=== PATIENT | male | born 1955 | race Caucasian/White ===

== ENCOUNTER 2022-02-05 14:54 | Outpatient (CLI) | payer BC, SELFPAY | END 2022-02-05 14:55 | disposition home or self-care (01) | LOC: RAD 14:55 | PROVIDERS: PCP Family Medicine; Visit Provider Family Medicine | DX: I51.7 Cardiomegaly (principal); I10 Essential (primary) hypertension; I35.1 Nonrheumatic aortic (valve) insufficiency; I34.0 Nonrheumatic mitral (valve) insufficiency | CPT/HCPCS: 93306 ==

== ENCOUNTER 2022-10-02 14:28 | Emergency (ER) | payer BC, SELFPAY ==
[2022-10-02 14:36] VITALS: BP 177/105; PULSE 83; RESP 18; TEMP 36.6; O2SAT 98; BMI 40.3
--- NOTE | 2022-10-02 15:15 | ED.NURSE ---
Right great toe dressed with gauze and wrapped with ELIZABETH wrap by at home. Toe undressed and cleansed with normal saline and sterile gauze. Laceration noted across bottom of entire big toe nail. Small amount of bleeding from wound. Dr. Haji present after toe was undressed and cleansed the wound herself.
--- NOTE | 2022-10-02 15:16 | ED_ITS ---
HPI - Extremity Injury (Lower) General Time Seen by Provider: 15:16 Date Seen: 10/02/22 Chief Complaint: Extremity Pain/Injury, Lower Stated Complaint: Right big toe injury Time Seen by Provider: 10/02/22 15:06 Source: patient and RN notes reviewed Mode of arrival: ambulatory Limitations: no limitations History of Present Illness HPI Narrative: Patient is a 67-year-old male coming in with an injury to his right toe. He tripped on a rug and on states he heard a snap. His toe was bleeding afterwards. He is not on any blood thinners. We will check to see what his last tetanus was, he is not sure. This rug was in the house. There is no other injury. Happened just prior to arrival. Related Data Previous Rx's Medication Instructions Recorded glipizide 10 mg tablet, extended 10 mg PO QDAY #90 tabs 10/16/21 release 24 hr metformin 750 mg tablet,extended 1,500 mg (2 x 750 mg) PO QDAY #180 10/16/21 release 24 hr tabs lisinopril 20 mg tablet 20 mg PO QDAY #90 tabs 09/25/22 cephalexin 500 mg tablet 500 mg PO TID #21 tabs 10/02/22 Allergies Allergy/AdvReac Type Severity Reaction Status Date / Time No Known Drug Allergies Allergy Verified 10/02/22 14:39 Review of Systems Narrative: As per HPI. PFSH PFSH Social History Smoking Status: Never smoker Do you use any of these nicotine containing products: None Second hand tobacco smoke exposure: No How often do you have a drink containing alcohol: never AUDIT-C Alcohol total score: 0 Non-prescribed substance use: denies use service: No Exam Const: Vital Signs, click to edit/add: Vital Signs - 24 hr 10/02/22 14:36 Temperature 98 F Pulse Rate [Right Pulse Oximeter] 83 Respiratory Rate 18 Blood Pressure [Ri ght Upper Arm] 177/105 H Pulse Oximetry 98 Oxygen Delivery Me thod Room Air 67-year-old male is alert interactive no apparent distress. Bandages were removed from his right foot. He has obvious bleeding along the base of his toenail in the right 1st toe. You can see when you move the toe down that the whole nail is intact but that there is a ripped along the base of the nail both medial and laterally and extends into the soft tissues. The tissue beneath the nail is completely intact but there seems to be a laceration that extends deep. There is active bleeding when I do this. It is more venous oozing type bleeding, nothing spurting. The nail itself is entirely intact but did talk to both patient and his that the nail plate below the nail could certainly be damaged. He needs repair of the soft tissues certainly with stitching. Did review with them that if the nail plate is traumatized, Course Consultations Consultation #1: Reviewed with Elsie MAURER from Orthopedics. Reviewed that this is open wound where he affectively fractured but also opened the tissue by the nail bed. She agrees with the suturing, agrees with the fact that he may have toenail injury and may lose the nail. They will get him in to clinic next week to recheck. Time: 16:40 Vital Signs Vital signs: Initial Vital Signs Temperature 98 F 10/02/22 14:36 Temperature Source Temporal Artery Scan 10/02/22 14:36 Pulse Rate 83 10/02/22 14:36 Respiratory Rate 18 10/02/22 14:36 Blood Pressure 177/105 H 10/02/22 14:36 Blood Pressure Mean 129 H 10/02/22 14:36 Blood Pressure Position Sitting 10/02/22 14:36 Pulse Oximetry 98 10/02/22 14:36 Oxygen Delivery Method Room Air 10/02/22 14:36 Vital Signs Temperature 98 F 10/02/22 14:36 Pulse Rate 83 10/02/22 14:36 Respiratory Rate 18 10/02/22 14:36 Blood Pressure 177/105 H 10/02/22 14:36 Pulse Oximetry 98 10/02/22 14:36 Oxygen Delivery Method Room Air 10/02/22 14:36 Temperature 98 F 10/02/22 14:36 Pulse Rate 83 10/02/22 14:36 Respiratory Rate 18 10/02/22 14:36 Blood Pressure 177/105 H 10/02/22 14:36 Pulse Oximetry 98 10/02/22 14:36 Oxygen Delivery Method Room Air 10/02/22 14:36 MDM - Extremity Injury (Lower) Imaging Data XR toe: Attestation: I have reviewed the pertinent imaging results. Radiologist's impression: Patient: ALFREDO ORTIZ Facility:?[facility] Patient ID:?[id number] Site Patient ID:?[id number]. Site :?[id number] Study:?XRay Extremity Right 1ST TOE 3V-10/02/2022 3:44:28 PM Ordering Physician:Genet Chao Final Report: INDICATION: Injury. COMPARISON: None. TECHNIQUE: Three views of the great toe. FINDINGS: Fracture base of 1st distal phalanx, mild angulation and displacement. No additional fractures. Dictated by Lewis Garcia MD @ 10/02/2022 4:20:36 PM (Electronic Signature) Critical Care Time Critical Care Time Critical Care Time: No Discharge Plan Discharge Clinical Impression: Fracture of toe, open Patient Disposition: Home, Self-Care Condition: Stable Instructions: Toe Fracture (ED) Additional Instructions: Need to use postop shoe for ambulation. Do not walk barefoot on this toe right now. Need to keep the laceration clean, use bandages with bacitracin. We will put you on an antibiotic as this was an open fracture, please start today and take as prescribed. Can use Tylenol and ibuprofen if needed for pain control, follow bottle directions for dosing. Recommend ice and elevation as much as able to these 1st couple of days to help decrease pain and swelling. The orthopedic office will be contacting you on Tuesday to get you scheduled for follow-up. A work note to be out of work this next week has been provided. If there is any evidence of infection, please seek re-evaluation. Prescriptions: New cephalexin 500 mg tablet 500 mg PO TID Qty: 21 0RF No Action metformin 750 mg tablet extended release 24 hr 1,500 mg PO QDAY Qty: 180 3RF glipizide 10 mg tablet extended release 24hr 10 mg PO QDAY Qty: 90 3RF lisinopril 20 mg tablet 20 mg PO QDAY Qty: 90 0RF Follow Up/Referrals: Davin Hannah MD [Primary Care Provider] - Stand Alone Forms: [facility] [place] Info Instructions Procedures Laceration Laceration 1: Pre procedure diagnosis: Toe laceration Post procedure diagnosis: Same Site marking: not applicable Name of person performing procedure: Zhanna Esteban Site: other (Right great toe) Side (If applicable): right Size (cm): 1.0 Description: linear Depth: simple, single layer Local Anesthetic: lidocaine 1% Amount of anesthesia used (mL): 5 (Digital block performed) Pre-repair: wound explored Skin layer closed with: other (Ethilon) Size (cm): 3-0 Number of sutures: 6 (3 sutures on each side of the base of the toe where the skin tore are placed) Technique: simple, interrupted
--- NOTE | 2022-10-02 15:24 | CRLHL7_ITS ---
For Patients: As a result of the Cures Act, medical imaging exams and procedure reports are released immediately into your electronic medical record. You may view this report before your referring provider. If you have questions, please contact your health care provider. INDICATION: Injury. COMPARISON: None. TECHNIQUE: Three views of the great toe. FINDINGS: Fracture base of 1st distal phalanx, mild angulation and displacement. No additional fractures. Dictated by Lewis Garcia MD @ 10/02/2022 4:20:36 PM (Electronically Signed)
--- NOTE | 2022-10-02 16:45 | ED.NURSE ---
Wound cleansed with normal saline and gauze. Dressed with bacitracin and telfa, then wrapped with gauze and ELIZABETH wrap. Post-op shoe applied. D/c instructions provided
== END 2022-10-02 16:54 | disposition home or self-care (01) ==
PROVIDERS: Emergency Provider Family Medicine; PCP Family Medicine
DX: S91.211A Laceration without foreign body of right great toe with damage to nail, initial encounter (principal); S92.404A Nondisplaced unspecified fracture of right great toe, initial encounter for closed fracture; W22.8XXA Striking against or struck by other objects, initial encounter
CPT/HCPCS: 12002; 73660; 99283

== ENCOUNTER 2022-12-29 10:20 | Outpatient (CLI) | payer BC, SELFPAY | END 2022-12-29 10:21 | disposition home or self-care (01) | PROVIDERS: PCP Family Medicine; Visit Provider Family Medicine | DX: Z01.818 Encounter for other preprocedural examination (principal); I10 Essential (primary) hypertension; E66.9 Obesity, unspecified; E13.9 Other specified diabetes mellitus without complications; Z12.5 Encounter for screening for malignant neoplasm of prostate; Z13.6 Encounter for screening for cardiovascular disorders | CPT/HCPCS: 80048; 80061; 84153 ==

== ENCOUNTER 2023-01-08 09:43 | Outpatient (CLI) | payer BC, SELFPAY | END 2023-01-08 09:44 | disposition home or self-care (01) | LOC: LAB 09:44 | PROVIDERS: PCP Family Medicine; Visit Provider Orthopaedic Surgery Sports Medicine | DX: Z01.818 Encounter for other preprocedural examination (principal) | CPT/HCPCS: 36415; 86850; 86900; 86901 ==

== ENCOUNTER 2023-01-10 06:57 | Day surgery (SDC) | payer BC, SELFPAY ==
[2023-01-10] VITALS (21 sets, daily range): BP systolic 100–166; BP diastolic 59–98; PULSE 60–826; RESP 14–161; TEMP 36.2–37.1; O2SAT 94–98; BMI 39.9
--- NOTE | 2023-01-10 07:38 | CRLHL7_ITS ---
For Patients: As a result of the Cures Act, medical imaging exams and procedure reports are released immediately into your electronic medical record. You may view this report before your referring provider. If you have questions, please contact your health care provider. HISTORY: Total hip arthroplasty. TECHNIQUE: Two views of the left hip. COMPARISON: 01/10/2023. FINDINGS: Intact left total hip arthroplasty. No periprosthetic fracture or hardware loosening. Soft tissue gas is present. IMPRESSION: Intact left total hip arthroplasty. Dictated by Levi Irizarry MD @ 01/11/2023 5:13:31 AM (Electronically Signed)
[2023-01-10] MEDS: ACETAMINOPHEN 500 MG TABLET 1000 MG PO ×3 (07:42→18:46)
[2023-01-10] MEDS: OXYCODONE (CR) 10 MG TAB.ER.12H PO (07:42)
[2023-01-10] MEDS: LACTATED RINGERS 1000 ML 1,000 ML 100 ML IV ×2 (08:00→08:59)
[2023-01-10] MEDS: SODIUM CHLORIDE 0.9 % (FLUSH) 10 ML SYRINGE IVF (08:00)
[2023-01-10] MEDS: fentaNYL 100 MCG/2 ML inj IVP (08:25)
[2023-01-10] MEDS: MIDAZOLAM HCL 1 MG/ML inj IVP (08:25)
--- NOTE | 2023-01-10 08:38 | SUR.PREOP ---
TIME?OUT:?0825 PT/RN/MDA?VERIFICATION?OF?SURGICAL?SITE,?PROCEDURE,?AND?CONSENT OBTAINED?PRIOR?TO?INVASIVE?PROCEDURE.
--- NOTE | 2023-01-10 08:45 | CRLHL7_ITS ---
For Patients: As a result of the Cures Act, medical imaging exams and procedure reports are released immediately into your electronic medical record. You may view this report before your referring provider. If you have questions, please contact your health care provider. INDICATION: Left total hip arthroplasty TECHNIQUE: 56 seconds of fluoroscopy was provided with no radiologist in attendance. 1 view left COMPARISON: None FINDINGS: Single fluoroscopic image demonstrates an intraoperative appearance of hip arthroplasty. Dictated by cOhoa Ray MD @ 01/10/2023 4:44:36 PM Dictated by: Ochoa Ray MD @ 01/10/2023 16:44:40 (Electronically Signed)
[2023-01-10] MEDS: CEFAZOLIN 2 GM in 0.9 % SODIUM CHLORIDE Mini-bag 100 ML IVPB ×3 (08:50→23:07)
[2023-01-10] MEDS: TRANEXAMIC ACID 100 MG/ML INJ 1000 MG IV (08:50)
--- NOTE | 2023-01-10 09:02 | SUR.OPER ---
PATIENT QUESTIONS ANSWERED SATISFACTORILY PREOPERATIVELY. PATIENT BROUGHT TO OR #3 PER CART AFTER ADMINISTRATION OF A BLOCK. Patient positioned supine on OR #3 bed. The perioperative team supported arms bilaterally on arm boards. Final approval of positioning by surgeon.
--- NOTE | 2023-01-10 09:24 | W.PM.NB ---
Nerve Block Nerve Block Time Seen by Provider: 08:29 Date Seen: 01/10/23 Type of block requested by surgeon for post-operative analgesia: ELYSSA/LFCN Side: left Time out performed: Yes Verification of patient name: Yes Verification of date of : Yes Site marking: site marked Name of person performing procedure: Juan Carlos Continuous monitoring Was continuous monitoring of O2 sat, B/P, inspector brake lining, recorded every 15 minutes?: Yes Procedure Checklist: sterile prep, needles and gloves Ultrasound guided. Images saved: Yes Medications given in 5ml increments after negative aspiration: Ropivicaine %: 0.5 mL: 30 Needle gauge: 20 Decadron (mg): 10 Precedex (mcg): 25 Patient tolerated procedure well: Yes Additional comments: Needle noted below psoas tendon needle noted adjacent to LFCN Block Charges Block Charge (with Pro Fee): Other Periph Nerve Block Use of Ultrasound Machine for Block: Yes- US Guidance/pain block
--- NOTE | 2023-01-10 09:24 | W.ANESCHARGE ---
Anesthesia Charges Start Date/Time Anesthesia Start Date: 01/10/23 Anesthesia Start Time: 08:34 Stop Date/Time Anesthesia Stop Date: 01/10/23 Anesthesia Stop Time: 11:33
--- NOTE | 2023-01-10 11:00 | W.PM.H&PU ---
History & Physical Update History & Physical Update H&P Reviewed and patient assessed: No changes noted
--- NOTE | 2023-01-10 11:01 | P.ORPRC_ITS ---
Procedure Note Date of procedure: 01/10/23 Procedure: PREOPERATIVE DIAGNOSIS: 1. Left hip osteoarthritis, severe, primary POSTOPERATIVE DIAGNOSIS: 1. Left hip osteoarthritis, severe, primary PROCEDURE: 1. Left total hip arthroplasty-anterior approach 2. 78355 - intraoperative fluoroscopy up to 1 hour. SURGEON: Adalberto Quintero MD. MORTGAGE LOAN PROCESSOR: KALPANA Rosenberg; Davion Zuniga Pac - Of note, a skilled specimen preparation assistant was critical for this case to aid in patient positioning, tissue retraction, limb manipulation/positioning, dislocation/relocation, patient safety, and closure. ANESTHESIA: General endotracheal anesthetic+ Gus block EBL: 700ml IMPLANTS: DePuy J&J uncemented total hip [place] cup size 52, hole eliminator, +4 neutral liner Actis stem, high offset, size 7 +1.5 mm ceramic 36 mm head. SPECIMENS: Soft tissue specimen was sent for permanent pathology. It was near the capsule/encompassed within the anterior and lateral capsule. It had a strange white color and soft consistency. It is not 1 specific spot, but seemed to ooze when pressure was applied to the more posterior lateral capsule. COMPLICATIONS: None evident INDICATIONS: The patient is a pleasant 67-year-old male who has experienced severe left hip pain and difficulty bearing weight. Workup included x-rays which revealed severe osteoarthrosis in the hip. Given the deformity, the dysfunction, and the pain, as well as the failure of nonoperative management, recommendation was made for surgery. FINDINGS: Diffuse full-thickness osteo arthritic changes within the left hip joint including loss of cartilage in the femoral head and acetabulum. Osteo phyte formation accompanying this. Atypical, white-colored, tapioca pudding- looking tissue was encountered when dissecting deeper towards the capsular depth. Some of this was captured and sent for permanent pathology. The superficial muscle tissue was very abnormal in appearance. In fact, it was not a typical beefy-red appearance. Instead, it was pale and had no real striations. It was difficult to find the proper muscle plane from the superficial layers. Once we got to the deeper layers, the muscle tissue appeared more normal and confirmed the proper plane for our dissection. Beyond that, very tight hip in general. Somewhat difficult to elevate the femur out of the wound, but tissue mobilization allowed procedure to be completed safely. DESCRIPTION OF PROCEDURE: Following a thorough discussion of risks, benefits, and alternatives consent was obtained and the left hip was marked. The patient was brought to the operating room and placed supine on the operating table. Induction of anesthesia was undertaken. 2 g IV Ancef and 1 g tranexamic acid was administered within 1 hr of incision preoperatively. Proper time-out was performed identifying proper patient, site, procedure. The operative extremity was prepped and draped in the appropriate sterile fashion using ChloraPrep after the patient was positioned on the [place] table with head in neutral alignment and all bony prominences well padded. C-arm fluoroscopic imaging was utilized to confirm proper pelvis rotation and position, and to get true AP films of both the contralateral left, and the affected left hip. This is for comparison. A longitudinal incision was made starting approximately 1 cm distal to the ASIS, and 3-4 cm lateral. The incision was extended distally aiming toward the lateral border the patella. Sharp incision through skin and bovie cautery through the subcutaneous tissue allowed identification of the TFL fascia. This was sharply divided, and the fascia bluntly released from the muscle fibers as we dissected medial. Upon coming to the medial border, we were able to retract the TFL laterally, and penetrated the deeper fascia and identify the crossing circumflex vessels. These were ligated/cauterized. The rectus was elevated from the capsule, and retractors placed laterally and medially along the femoral neck to help with visualization of the capsule. We then performed an inverted T capsulotomy. The capsule was tagged for later repair. (Of note, it was around this time that we encountered the atypical appearing white colored soft consistency tissue that was sent for pathology.) Retractors were placed inside the capsule. The femoral neck was visualized after releasing medially down to the lesser trochanter, along the saddle laterally, and up onto the acetabulum. The femoral neck cut was made in line with our preoperative templating. The head was removed in a single piece, and sized. We turned our attention to acetabular preparation. Initially, the labrum was resected from around the perimeter, the pulvinar was excised, allowing us to visualize the false wall. We started the reaming with a 43 mm reamer. This was medialized down to the true wall. We then enlarged our reamers sequentially up to one size less than the selected cup size. We trialed at the same size and found it to have an excellent fit. The selected cup was then opened, inserted, and impacted in line with the goal of 40-45? of abduction, and 20-25? of anteversion. This was confirmed on C-arm fluoroscopic imaging to be in the appropriate/goal position. Once the cup was placed we placed a hole eliminator and a liner consistent with preop planning. Attention was turned to the femoral preparation. The limb was extended, externally rotated, and adducted. The posteromedial capsule was released, as retractors were placed allowing excellent access to the proximal femur. Initially a hand box coverer was followed by canal finder followed by various broaches. We broached sequentially up to size noted above, found it to have excellent rotational control, and trialing various heads and necks, revealed that appropriate neck offset, and the above noted head size provided the greatest stability, and mormon of length, and offset. C-arm fluoroscopic imaging confirmed position of the stem, as well as leg lengths, which were compared with the pre procedure all fluoroscopic images. Trial implants were removed, the real femoral stem inserted, as was the ceramic head. After reducing, the leg was placed through range of motion and stability was confirmed anterior, posterior, and lateral. A 3 min Betadine soak was then performed, and thorough irrigation with normal saline followed. Closure of the capsule was performed with #1 PDS. Bleeding was confirmed to be controlled at this stage, and the TFL fascia was closed with #0 strata fix. Subcutaneous, and subcuticular closure was performed with 2-0 Vicryl and 4-0 Monocryl, respectively. Dressings were applied, and the patient was awoken from anesthesia and transferred the PACU in stable condition. A skilled specimen preparation assistant was critical for this case to aid in patient positioning, tissue retraction, proximal femur exposure, limb manipulation/positioning, dislocation/relocation, patient safety, and closure. PLAN: 1. Weight bear as tolerated operative extremity. 2. 23 hr perioperative antibiotics. 3. Ice. 4. PT/OT consults for ambulation assistance/mobility education. 5. Social work consult for discharge planning. 6. DVT prophylaxis with at SCDs, Jeff Hose, and Xarelto x5 days followed by aspirin for a total of 1 month.
--- NOTE | 2023-01-10 11:38 | W.ANESCHARGE ---
Anesthesia Charges Start Date/Time Anesthesia Start Date: 01/10/23 Anesthesia Start Time: 08:34 Stop Date/Time Anesthesia Stop Date: 01/10/23 Anesthesia Stop Time: 11:33
[2023-01-10] MEDS: OXYCODONE 5 MG TABLET PO ×5 (13:42→21:43)
[2023-01-10] MEDS: LACTATED RINGERS 1000 ML 1,000 ML 75 ML IV (14:00)
--- NOTE | 2023-01-10 15:16 | PM.IMCN1 ---
Date of Consult Patient: [facility] Patient Consult date: 01/10/23 Requesting Physician: Orthopedics Primary Care Provider: Davin Hannah MD Consult Narrative Reason for consult: DM Narrative: Micheal Hernandez is a 67 year old male who underwent elective left total hip arthroplasty by Dr. Gilbert today. There was an estimated blood loss of 700 mL. Micheal's , Gisella, is in the room with him this afternoon. Micheal is feeling well and denies pain. He tells me about having broken his right 1st toe couple months ago and that he is still been healing from that. He noted a lot more left hip pain when he was limping because of his right toe. He still has some pain in his right toe but is able to walk on it fairly well now. Review of Systems Status of ROS: Reports: 6 or more systems reviewed and unremarkable except as noted in History and below [facility] Medical History (Updated 01/10/23 @ 15:44 by Tamara Rios MD) Fracture of toe, open (10/02/22) ?S92.919B - Unspecified fracture of unspecified toe(s), initial encounter for open fracture (ICD-10) Anemia ?D64.9 - Anemia, unspecified (ICD-10) Osteoarthritis of left hip ?M16.12 - Unilateral primary osteoarthritis, left hip (ICD-10) Ascending aortic aneurysm ?I71.21 - Aneurysm of the ascending aorta, without rupture (ICD-10) LVH (left ventricular hypertrophy) ?I51.7 - Cardiomegaly (ICD-10) Hypertension ?I10 - Essential (primary) hypertension (ICD-10) Obesity ?E66.9 - Obesity, unspecified (ICD-10) Kidney stones ?N20.0 - Calculus of kidney (ICD-10) Abnormal EKG ?R94.31 - Abnormal electrocardiogram [ECG] [EKG] (ICD-10) Diabetes 1.5, managed as type 2 ?E13.9 - Other specified diabetes mellitus without complications (ICD-10) Surgical History (Updated 01/10/23 @ 15:38 by Tamara Rios MD) S/P total hip arthroplasty ?Z96.649 - Presence of unspecified artificial hip joint (ICD-10) History of open reduction and internal fixation (ORIF) procedure ?Z98.890 - Other specified postprocedural states (ICD-10) History of umbilical hernia repair ?Z98.890 - Other specified postprocedural states (ICD-10) ?Z87.19 - Personal history of other diseases of the digestive system (ICD-10) Family History Mother Stroke Other Diabetes Social History (Updated 01/10/23 @ 15:21 by Tamara Rios MD) Narrative: to Gisella, who is here with him today. Never smoker. Does not use any tobacco. Never was a big drinker, quit all alcohol 10 years ago. Denies recreational drug use. Full code. What is your current living situation?: I presently have a place to live In the past 12 months, utilities in danger of being shut off: no In past 12 months, lack of transportation kept you from medical appts, meetings, work, or getting things needed for daily living: no In the past 12 mos, have been you worried that your food would run out before you had money to buy more?: never true In the past 12 mos, the food you bought just didn't last and you didn't have money to buy more?: never true Smoking Status: Never smoker Do you use any of these nicotine containing products: None Second hand tobacco smoke exposure: No How often do you have a drink containing alcohol: never AUDIT-C Alcohol total score: 0 Non-prescribed substance use: denies use How often does anyone, including family, friends and others, physically hurt you: never How often does anyone, including family, friends and others, insult or talk down to you: never How often does anyone, including family, friends and others, threaten you with harm: never How often does anyone, including family, friends and others, scream or curse at you: never service: No Meds Home Medications and Allergies Home Medication Comments: Glipizide extended release 10 mg p.o. daily Lisinopril to 20 mg p.o. daily Metformin 1500 mg p.o. daily Allergies Allergy/AdvReac Type Severity Reaction Status Date / Time No Known Drug Allergies Allergy Verified 01/10/23 07:35 Exam Narrative: Exam Narrative: General: No acute distress. Awake alert oriented x3. HEENT: Normocephalic atraumatic, pupils equally round and reactive to light and accommodation. Oropharynx clear. Mucous membranes are moist. No cervical lymphadenopathy, thyromegaly or carotid bruits. No JVD. Cardiovascular: Regular rate and rhythm. No murmurs, gallops, or rubs. Chest: No increased work of breathing. Clear to auscultation bilaterally. No crackles or wheezes. Abdomen: Bowel sounds present. Soft, nondistended, nontender. No hepatosplenomegaly or masses. Extremities: Left hip bandage is clean, dry, and intact. No edema, no cyanosis or clubbing. Right great toe is without deformity with the exception of his nail that appears to be new, consistent with the recent injury which tore off this nail. Skin: No jaundice, no pallor, no rashes. Const: Vital Signs, click to edit/add: Vital Signs - 24 hr 01/10/23 07:36 01/10/23 08:25 01/10/23 08:30 Temperature 98.2 F Pulse Rate 84 79 82 Pulse Rate [Pulse Oximeter] Respiratory Rate 16 16 16 Blood Pressure 166/98 H 163/89 H 154/91 H Blood Pressure [Le ft Arm] Pulse Oximetry 97 96 97 Oxygen Delivery Me thod Room Air Nasal Cannula Nasal Cannula Oxygen Flow Rate 2 2 01/10/23 11:35 01/10/23 11:41 01/10/23 11:47 Temperature 97.2 F L 97.2 F L Pulse Rate 826 H 60 62 Pulse Rate [Pulse Oximeter] Respiratory Rate 161 H 16 16 Blood Pressure 109/68 100/74 109/59 L Blood Pressure [Le ft Arm] Pulse Oximetry 94 94 96 Oxygen Delivery Me thod Nasal Cannula Room Air Room Air Oxygen Flow Rate 2 2 01/10/23 11:53 01/10/23 11:58 01/10/23 12:07 Temperature 97.2 F L 97.8 F Pulse Rate 66 60 69 Pulse Rate [Pulse Oximeter] Respiratory Rate 16 16 14 Blood Pressure 116/72 127/83 Blood Pressure [Le ft Arm] 111/81 Pulse Oximetry 96 96 Oxygen Delivery Me thod Room Air Room Air Room Air Oxygen Flow Rate 01/10/23 12:15 01/10/23 12:30 01/10/23 12:45 Temperature 97.9 F 97.1 F L 97.6 F Pulse Rate Pulse Rate [Pulse Oximeter] 68 67 67 Respiratory Rate 14 14 14 Blood Pressure Blood Pressure [Le ft Arm] 127/81 113/75 124/72 Pulse Oximetry 98 96 96 Oxygen Delivery Me thod Room Air Room Air Room Air Oxygen Flow Rate 01/10/23 13:00 01/10/23 13:30 01/10/23 14:00 Temperature 97.7 F 97.7 F 97.9 F Pulse Rate Pulse Rate [Pulse Oximeter] 65 73 75 Respiratory Rate 14 14 14 Blood Pressure Blood Pressure [Le ft Arm] 119/75 124/77 115/74 Pulse Oximetry 98 96 96 Oxygen Delivery Me thod Room Air Room Air Room Air Oxygen Flow Rate Assessment and Plan Assessment and plan (1) S/P total hip arthroplasty: Problem comment: - 01/10/23 Left, Dr. Quintero - Routine post op cares Status: Acute (2) Osteoarthritis of left hip: Problem comment: Severe Status: Chronic (3) LVH (left ventricular hypertrophy): Problem comment: - Resume lisinopril upon discharge home or sooner if hypertensive Status: Chronic (4) Obesity: Problem comment: - BMI 41.0 - At risk for sleep apnea and obesity hypoventilation syndrome. Monitor pulse ox with vitals. Status: Chronic (5) Hypertension: Problem comment: - Resume lisinopril upon discharge home or sooner if hypertensive Status: Chronic (6) Diabetes 1.5, managed as type 2: Problem comment: Resume glipizide and metformin in am. I've added ISS ACHS for hospital stay. Status: Chronic (7) Anemia: Problem comment: 12/29/22 HGB 13.1 Status: Chronic (8) Fracture of toe, open: Problem comment: - 10/02/22 fracture base of 1st distal phalanx, mild angulation and displacement -- open - May affect ability to ambulate, especially with need to now favor left hip post op. PT and OT to evaluate. Status: Acute
[2023-01-10] MEDS: METFORMIN ER 500 MG 1500 MG PO (18:01)
--- NOTE | 2023-01-10 18:09 | PC.NURSE ---
End of Shift: Patient pleasant and cooperative. Patient vitally stable, lungs clear, BS WNL, IV running LR at 75. Patient rates left hip pain at most 6/10, 5 mg of oxy given once and 10 mg of oxy given once. Patient 1 assist, walker, gb. Patient urinating and tolerating regular diet. Patient blood sugar 208. Patient left hip dressing C/D/I. Active ice applied to left hip. Patient up in chair.
[2023-01-10] MEDS: SENNOSIDES 1 TAB TABLET 2 TAB PO (21:21)
[2023-01-11] MEDS: ACETAMINOPHEN 500 MG TABLET 1000 MG PO ×2 (01:36→08:22)
[2023-01-11] MEDS: OXYCODONE 5 MG TABLET PO ×3 (01:37→09:11)
[2023-01-11 03:00] VITALS: PULSE 85; RESP 16; O2SAT 96
--- NOTE | 2023-01-11 06:10 | PC.NURSE ---
End of Shift:? Pt pleasant and cooperative throughout shift, ambulating well with walker, GB, SBA. Continent with bladder, no BM. at bedside until HS. Pain well-controlled with oxycodone and Tylenol between -09/04. VSS. ?
[2023-01-11 06:31] LABS: Basophils Percent Auto 0.2 % (0.0-3.0); Hematocrit 31.8 % (37.0-53.0); Hemoglobin* 10.6 gm/dL (13.5-17.5); Immature Granulocytes Pct Auto 0.8 %; Lymphocytes Percent Auto 14.3 % (20-44); Mean Corpuscular HGB Conc 33 gm/dL (32-36); Mean Corpuscular Hemoglobin 31 pg (26-34); Mean Corpuscular Volume 91 fL (80-100); Monocytes Percent Auto 12.2 % (0.0-11.0); Neutrophils Percent Auto 72.5 % (42.0-72.0); Platelet Count* 254 K/uL (140-440); RDW Coefficient of Variation % 13.8 % (11.5-15.5); Red Blood Count 3.48 m/uL (4.30-5.90)
[2023-01-11 06:41] LABS: Slide Review Reflex No
[2023-01-11 06:45] LABS: Potassium* 4.7 mmol/L (3.6-5.1); Sodium* 137 mmol/L (135-149)
[2023-01-11 06:47] LABS: Creatinine* 0.9 mg/dL (0.5-1.5); Est. Creatinine Clearance* 61.67; Estimated Glomerular Filt Rate 95 ml/min
[2023-01-11 06:48] LABS: Blood Urea Nitrogen* 17 mg/dL (7-30)
[2023-01-11 07:45] VITALS: BP 111/69; PULSE 70; RESP 18; TEMP 36.9; O2SAT 96
--- NOTE | 2023-01-11 08:05 | P.ORPN_ITS ---
Subjective Subjective Date Seen: 01/11/23 Principal diagnosis: Status postop day 1, left total hip arthroplasty - anterior approach Interval history: Patient reports doing well. No acute events over night. Pain managed with scheduled and PRN medications, ice. DVT prophylaxis: Rivaroxaban, bilateral knee high Jeff stockings, SCDs, walking. Denies fevers, chills, aches, N/V, CP, SOB/MICHELE, or lightheadedness. With the 700 mL intraoperative blood loss, patient is not feeling symptomatic from this without lightheadedness, dizziness, chest palpitations or shortness of breath. Hemoglobin 10.6. Ortho Exam Narrative Exam Narrative: -Patient appears comfortable in bed; no apparent acute distress -Alert and oriented times 3 -Operative hip moderately swollen; soft tissues supple; no obvious erythema. Ecchymosis minimal. Warmth appropriate -Surgical dressing clean, dry, intact; no obvious drainage, no erythematous streaking peripheral to the bandage -Bilateral calves soft and supple; no significant swelling, edema, tenderness, erythema, discoloration, warmth, or palpable cords -2+ DP/PT pulses, intact dermatomes and myotomes distally (5/5 strength). No n umbness about the lateral femoral cutaneous nerve distribution. Const Vital Signs, click to edit/add: Vital Signs - 24 hr 01/10/23 08:25 01/10/23 08:30 01/10/23 11:35 Temperature 97.2 F L Pulse Rate 79 82 826 H Pulse Rate [Pulse Oximeter] Respiratory Rate 16 16 161 H Blood Pressure 163/89 H 154/91 H 109/68 Blood Pressure [Left Arm] Pulse Oximetry 96 97 94 Oxygen Delivery Method Nasal Cannula Nasal Cannula Nasal Cannula Oxygen Flow Rate 2 2 2 01/10/23 11:41 01/10/23 11:47 01/10/23 11:53 Temperature 97.2 F L 97.2 F L Pulse Rate 60 62 66 Pulse Rate [Pulse Oximeter] Respiratory Rate 16 16 16 Blood Pressure 100/74 109/59 L 116/72 Blood Pressure [Left Arm] Pulse Oximetry 94 96 96 Oxygen Delivery Method Room Air Room Air Room Air Oxygen Flow Rate 2 01/10/23 11:58 01/10/23 12:07 01/10/23 12:15 Temperature 97.8 F 97.9 F Pulse Rate 60 69 Pulse Rate [Pulse Oximeter] 68 Respiratory Rate 16 14 14 Blood Pressure 127/83 Blood Pressure [Left Arm] 111/81 127/81 Pulse Oximetry 96 98 Oxygen Delivery Method Room Air Room Air Room Air Oxygen Flow Rate 01/10/23 12:30 01/10/23 12:45 01/10/23 13:00 Temperature 97.1 F L 97.6 F 97.7 F Pulse Rate Pulse Rate [Pulse Oximeter] 67 67 65 Respiratory Rate 14 14 14 Blood Pressure Blood Pressure [Left Arm] 113/75 124/72 119/75 Pulse Oximetry 96 96 98 Oxygen Delivery Method Room Air Room Air Room Air Oxygen Flow Rate 01/10/23 13:30 01/10/23 14:00 01/10/23 15:00 Temperature 97.7 F 97.9 F 98.8 F Pulse Rate Pulse Rate [Pulse Oximeter] 73 75 90 Respiratory Rate 14 14 16 Blood Pressure Blood Pressure [Left Arm] 124/77 115/74 110/67 Pulse Oximetry 96 96 95 Oxygen Delivery Method Room Air Room Air Room Air Oxygen Flow Rate 01/10/23 16:00 01/10/23 17:00 01/10/23 18:00 Temperature 98.4 F 98.3 F 98.2 F Pulse Rate Pulse Rate [Pulse Oximeter] 93 84 101 H Respiratory Rate 16 16 16 Blood Pressure Blood Pressure [Left Arm] 108/81 124/69 110/72 Pulse Oximetry 95 96 96 Oxygen Delivery Method Room Air Room Air Room Air Oxygen Flow Rate 01/10/23 19:00 01/10/23 23:00 01/10/23 23:00 Temperature 97.9 F 97.8 F Pulse Rate Pulse Rate [Pulse Oximeter] 99 97 97 Respiratory Rate 16 16 16 Blood Pressure Blood Pressure [Left Arm] 106/69 118/73 Pulse Oximetry 96 96 Oxygen Delivery Method Room Air Room Air Oxygen Flow Rate 01/11/23 03:00 01/11/23 07:45 Temperature 98.4 F Pulse Rate Pulse Rate [Pulse Oximeter] 85 70 Respiratory Rate 16 18 Blood Pressure Blood Pressure [Left Arm] 111/69 Pulse Oximetry 96 96 Oxygen Delivery Method Room Air Room Air Oxygen Flow Rate Assessment and Plan Assessment and plan (1) S/P total hip arthroplasty: Problem details: - 01/10/23 Left, Dr. Quintero - Routine post op cares Status: Acute (2) Osteoarthritis of left hip: Problem details: Severe Status: Chronic (3) LVH (left ventricular hypertrophy): Problem details: - Resume lisinopril upon discharge home or sooner if hypertensive Status: Chronic (4) Obesity: Problem details: - BMI 41.0 - At risk for sleep apnea and obesity hypoventilation syndrome. Monitor pulse ox with vitals. Status: Chronic (5) Hypertension: Problem details: - Resume lisinopril upon discharge home or sooner if hypertensive Status: Chronic (6) Diabetes 1.5, managed as type 2: Problem details: Resume glipizide and metformin in am. I've added ISS ACHS for hospital stay. Status: Chronic (7) Anemia: Problem details: 12/29/22 HGB 13.1 (postoperative time 10.6, asymptomatic) Status: Chronic (8) Fracture of toe, open: Problem details: - 10/02/22 fracture base of 1st distal phalanx, mild angulation and displacement -- open - May affect ability to ambulate, especially with need to now favor left hip post op. PT and OT to evaluate. Status: Acute Plan - Complete 23 hour perioperative antibiotics. - PT/OT consult for education and assistance. - Social work consult for discharge planning - Prescribed analgesics as needed - DVT prophylaxis: Rivaroxaban, bilateral knee high Jeff Hose stockings and SCDs - Anticipation is for discharge to home with spouse today 01/11/2023 if the patient remains medically stable, pain is controlled, and they are safe with mobilization. * spoke with patient's about the pathology, left hip capsule/joint sample, which would likely be resulted in 1 week.
[2023-01-11] MEDS: glipiZIDE XL 5 MG TAB 10 MG PO (08:22)
[2023-01-11] MEDS: RIVAROXABAN 10 MG TABLET PO (09:11)
[2023-01-11] MEDS: SENNOSIDES 1 TAB TABLET 2 TAB PO (09:12)
[2023-01-11] MEDS: METFORMIN ER 500 MG 1500 MG PO (09:13)
--- NOTE | 2023-01-11 11:06 | PC.NURSE ---
shift note: vss stable. pt afeb. LS clr. pt performing IS to 1500 w/o difficulty. HR reg. incision to lt hip c/d/i. 2 ice paks sent with pt at dc. Reviewed dc instructions and copies sent with pt. Belongings reviewed and sent with pt. Iv dc'd intact.
== END 2023-01-11 10:26 | disposition home or self-care (01) ==
LOC: OR 07:03 → MEDSURG 07:24
PROVIDERS: PCP Family Medicine; Visit Provider Orthopaedic Surgery Sports Medicine
PROC: (CPT 27130; principal; 2023-01-10 08:45)
DX: M16.12 Unilateral primary osteoarthritis, left hip (principal); G89.18 Other acute postprocedural pain; D64.9 Anemia, unspecified; E66.9 Obesity, unspecified; Z68.41 Body mass index [BMI] 40.0-44.9, adult; E13.9 Other specified diabetes mellitus without complications; S92.421D Displaced fracture of distal phalanx of right great toe, subsequent encounter for fracture with routine healing; I11.9 Hypertensive heart disease without heart failure
CPT/HCPCS: 27130; 01214; 36415; 64450; 73501; 76000; 76942; 82565; 82962; 84132; 84295; 84520; 85025; 97110; 97116; 97161; 97165; A9270; C1776; J0330; J0690; J1100; J2250; J2405; J2704; J2795; J3010; J3490; J7120

== ENCOUNTER 2023-02-07 13:00 | Outpatient (RCR) | payer BC, SELFPAY | END 2023-02-08 10:04 | disposition home or self-care (01) | PROVIDERS: PCP Family Medicine; Visit Provider Orthopaedic Surgery Sports Medicine | DX: M16.12 Unilateral primary osteoarthritis, left hip (principal); Z96.642 Presence of left artificial hip joint; Z51.89 Encounter for other specified aftercare | CPT/HCPCS: 97110; 97116; 97161 ==

== ENCOUNTER 2024-05-09 08:19 | Outpatient (CLI) | payer BC, SELFPAY | END 2024-05-09 08:20 | disposition home or self-care (01) | PROVIDERS: PCP Family Medicine; Visit Provider Family Medicine | DX: I10 Essential (primary) hypertension (principal); Z13.220 Encounter for screening for lipoid disorders; Z12.5 Encounter for screening for malignant neoplasm of prostate | CPT/HCPCS: 80053; 80061; G0103 ==

== ENCOUNTER 2024-05-23 14:44 | Outpatient (CLI) | payer BC, SELFPAY | END 2024-05-23 14:45 | disposition home or self-care (01) | LOC: CT 14:45 | PROVIDERS: PCP Family Medicine; Visit Provider Family Medicine | DX: I71.21 Aneurysm of the ascending aorta, without rupture (principal); R91.8 Other nonspecific abnormal finding of lung field; M89.9 Disorder of bone, unspecified | CPT/HCPCS: 71250 ==

== ENCOUNTER 2024-11-23 13:27 | Outpatient (CLI) | payer BC, SELFPAY ==
--- NOTE | 2024-11-23 13:45 | MR_ITS ---
[address] [address] Phone:?[phone] Fax:?[phone] Referring Physician Information: Jos Parnell [address] [facility] [address] Phone:?[phone] Fax:?[phone] Patient:Kayla Hernandez D.O.B:?1955 Sex:?Male Phone:?[phone] [facility] MRN:?[id number] Exam Date:?11/23/2024 EXAM: MRI EXAMINATION OF THE RIGHT HIP CLINICAL INFORMATION: Male, 69 years old, with right hip pain. INDICATION: Evaluate hip joint. PRIOR SURGERY: None reported. PLAIN FILMS: Hip radiographs dated 11/19/2024. COMPARISONS: No prior MRIs available. TECHNICAL INFORMATION: Using a 1.5T MR scanner and a localizing surface coil: coronals: PD, T2 sagittals: PD, T2 oblique axials: PD straight axials: PDFS coronals: T1, STIR of pelvis and hips SEDATION: None CONTRAST: None FINDINGS: Hip joint: Physiologic hip effusion. Mild-moderate generalized thinning of the articular cartilage throughout the right hip joint, without convincing full-thickness chondral defect/loss. No intra-articular bodies. Labrum: Intrasubstance degeneration and poorly defined fraying/tearing of the anterior through posterosuperior labrum (axial PD oblique series 6 images 916) this is associated with a 10 x 9 x 4 mm posterosuperior paralabral cyst. Proximal femur: No femoral occult fracture, stress injury, marrow edema or osteonecrosis. Mild marginal osteophytosis. Loss of normal femoral head/neck junction offset with mild-moderate anterosuperior femoral cam morphology. Based on oblique axial series 6 image 13 at approximately 1:30 o'clock anterosuperiorly, the maximum femoral alpha angle measures approximately 73?. Acetabulum: Mild subchondral edema and marginal osteophytosis is present in the periphery of the acetabulum. No stress/occult fracture or periacetabular ossicle. Version: Mild cranial acetabular retroversion with normal mid acetabular anteversion. Coverage: Right lateral center edge (CE) angle measures approximately 27? (normal 25?-39?), midline coronal series 4 image 14, corrected for pelvic obliquity. Ligamentum teres: Ligamentum teres is intact and unremarkable. Iliofemoral ligament: The iliofemoral ligament is intact without thickening. Pelvis osseous structures: Sacral ala and sacroiliac joints: No stress/insufficiency fractures or marrow edema/pathology. No demonstrable sacroiliitis. Pubic rami and pubic symphysis: Mild-moderate hypertrophy and irregularity pubic symphysis without stress/occult fracture evidence of osteitis pubis. Myotendinous structures: Gluteus abductors: Mild-moderate gluteus minimus and mild gluteus medius tendinopathy, without tear (axial PDFS series 7 images 10-18) Adductors: No demonstrable tendinopathy or strain/tear. Hamstrings: Mild bilateral common hamstrings tendinopathy, without tear. Flexors: Intact iliopsoas and rectus femoris, without strain/tear. External rotators: Intact, without demonstrable ischiofemoral impingement. Gluteal aponeurotic fascia and IT band: Unremarkable. Bursae: Mild-moderate left greater trochanteric bursitis (coronal STIR series 2 image 21). Mild right greater trochanteric bursitis (axial PDFS series 7 image 13). No iliopsoas bursitis. Intrapelvic contents: Free fluid: No free fluid seen within the pelvis. Pelvic viscera: No discrete intrapelvic mass is identified. Lymph nodes: No lymphadenopathy by MRI size criteria. Neurovascular structures: No discrete cyst, mass or other compression upon the portions visualized of sciatic or femoral nerves. Lumbar spine: Disc desiccation and moderate disc height loss at L4-5 and L5-S1 (coronal STIR series 2 images 18 & 19). IMPRESSION: 1. Mild-moderate osteoarthritis of the right hip joint. 2. Broad-based degeneration and tearing of the anterior through posterosuperior labrum with a 10 x 9 x 4 m posterior superior paralabral cyst. 3. Mild-moderate anterosuperior femoral cam morphology. Mild acetabular retroversion. However, the right hip volume is normal. 4. Mild-moderate left and mild right greater trochanteric bursitis. 5. Mild-moderate gluteus minimus and mild gluteus medius tendinopathy, without tear. 6. Moderate lower lumbar spondylosis, which is incompletely evaluated on this study. 7. Mild bilateral greater trochanteric bursitis. BC Electronically signed on 11/23/2024 3:24:00 PM by Jf Zuniga M.D.
== END 2024-11-23 13:28 | disposition home or self-care (01) ==
LOC: MRI 13:28
PROVIDERS: PCP Family Medicine; Visit Provider Physician Assistant
DX: M25.551 Pain in right hip (principal); M16.11 Unilateral primary osteoarthritis, right hip; S43.431A Superior glenoid labrum lesion of right shoulder, initial encounter; M70.61 Trochanteric bursitis, right hip; M47.896 Other spondylosis, lumbar region
CPT/HCPCS: 73721

== ENCOUNTER 2024-12-07 07:05 | Outpatient (CLI) | payer BC, SELFPAY ==
--- NOTE | 2024-12-07 07:15 | CRLHL7_ITS ---
For Patients: As a result of the Century Cures Act, medical imaging exams and procedure reports are released immediately into your electronic medical record. You may view this report before your referring provider. If you have questions, please contact your health care provider. Indication: Radiculopathy. Technique: Multiplanar, multisequence MRI of the lumbar spine was performed without intravenous contrast. Comparison: Lumbar spine radiographs 11/30/2024. Findings: There are 5 lumbar type vertebral segments identified. Subtle, minimal superior endplate chronic compression deformities of T11, T12 and L1. There is no discrete T1 hypointense marrow infiltrating process. The conus medullaris terminates at L1, normal. Cauda equina appears unremarkable. T12-L1: No spinal canal or neural foraminal stenosis. L1-2: Disc degeneration. No spinal canal narrowing. Mild neural foraminal narrowing. L2-3: Disc degeneration. Disc bulge combined with facet arthropathy results in mild spinal canal narrowing. Moderate neural foraminal narrowing. Moderate facet arthropathy. L3-4: Disc degeneration. Disc bulge combined with facet arthropathy results in [id number] spinal canal narrowing. [id number] neural foraminal narrowing. Moderate facet arthropathy. L4-5: Disc degeneration. Large central and left subarticular disc extrusion with 8 mm inferior migration. This results in severe spinal canal stenosis and compresses the cauda equina nerve roots. Moderate neural foraminal narrowing. Severe facet arthropathy. L5-S1: Grade 1 anterolisthesis. Mild spinal canal narrowing. Severe left and moderate right neural foraminal narrowing. Mild sacroiliac joint osteoarthritis. Impression: 1. At L4-5, large inferiorly migrated central and left subarticular disc extrusion with resultant severe spinal canal stenosis and compression of the cauda equina nerve roots. 2. [id number] spondylosis at the remaining lumbar levels. 3. Moderate to severe multilevel facet arthropathy. Dictated by Fabrice Laureano MD @ 12/07/2024 3:23:44 PM (Electronically Signed)
== END 2024-12-07 07:06 | disposition home or self-care (01) ==
LOC: MRI 07:06
PROVIDERS: PCP Family Medicine; Visit Provider Orthopaedic Surgery Sports Medicine
DX: M54.16 Radiculopathy, lumbar region (principal); M48.061 Spinal stenosis, lumbar region without neurogenic claudication; M47.896 Other spondylosis, lumbar region
CPT/HCPCS: 72148

== ENCOUNTER 2025-01-01 06:50 | Outpatient (CLI) | payer BC, SELFPAY | END 2025-01-01 06:51 | disposition home or self-care (01) | LOC: INJ CL 06:51 | PROVIDERS: PCP Family Medicine; Visit Provider Family Medicine | DX: M54.16 Radiculopathy, lumbar region (principal); M51.26 Other intervertebral disc displacement, lumbar region | CPT/HCPCS: 64483; Q9966 ==

== ENCOUNTER 2025-01-24 10:00 | Outpatient (RCR) | payer BC, SELFPAY | END 2025-03-04 14:20 | disposition home or self-care (01) | PROVIDERS: PCP Family Medicine; Visit Provider Family Medicine | DX: M48.061 Spinal stenosis, lumbar region without neurogenic claudication (principal); M54.16 Radiculopathy, lumbar region; Z51.89 Encounter for other specified aftercare | CPT/HCPCS: 97110; 97162; 97530 ==

== ENCOUNTER 2025-01-30 10:16 | Outpatient (CLI) | payer BC, SELFPAY | END 2025-01-30 10:17 | disposition home or self-care (01) | LOC: LKVREF 10:20 | PROVIDERS: PCP Family Medicine; Visit Provider Family Medicine | DX: E13.9 Other specified diabetes mellitus without complications (principal); K76.0 Fatty (change of) liver, not elsewhere classified | CPT/HCPCS: 80053 ==

== ENCOUNTER 2025-02-12 17:57 | Outpatient (CLI) | payer BC, SELFPAY ==
--- NOTE | 2025-02-12 18:15 | CRLHL7_ITS ---
For Patients: As a result of the Century Cures Act, medical imaging exams and procedure reports are released immediately into your electronic medical record. You may view this report before your referring provider. If you have questions, please contact your health care provider. INDICATION: Spinal stenosis, neurogenic claudication. TECHNIQUE: Multisequence multiplanar MRI of the lumbar spine without the use of intravenous contrast. COMPARISON: MRI lumbar spine dated 12/07/2024. FINDINGS: Unchanged grade 1 6 mm anterolisthesis of L5 on S1. Vertebral body heights are maintained. No T1 hypointense infiltrative lesion is identified. There is similar multilevel disc desiccation and height loss. The conus medullaris terminates normally at the L1 level. The prevertebral soft tissues are unremarkable. T12-L1 and L1-L2: Shallow symmetric disc bulging. Mild facet joint arthrosis. No significant spinal canal or neural foraminal stenosis. L2-L3: Symmetric disc bulge. Moderate facet joint arthrosis. Similar mild spinal canal stenosis and moderate bilateral neural foraminal narrowing. L3-L4: Symmetric disc bulge. Moderate facet joint arthrosis. Similar mild spinal canal stenosis and mild-moderate right neural foraminal narrowing. No significant left neural foraminal narrowing. L4-L5: Symmetric disc bulge. Moderate facet joint arthrosis. Similar large left central and subarticular disc extrusion with caudal subligamentous migration. Similar severe spinal canal stenosis and mild-moderate bilateral neural foraminal narrowing. L5-S1: Symmetric disc bulge/uncovering. Moderate left facet joint arthrosis. No significant spinal canal stenosis. Similar moderate-severe right and severe left neural foraminal narrowing. IMPRESSION: 1. At L2-L3, similar mild spinal canal stenosis and moderate bilateral neural foraminal narrowing. 2. At L3-L4, similar mild spinal canal stenosis and mild-moderate left neural foraminal narrowing. 3. At L4-L5, unchanged left central/subarticular disc extrusion, severe resultant spinal canal stenosis, and mild-moderate bilateral neural foraminal narrowing. 4. At L5-S1, similar moderate-severe right and severe left neural foraminal narrowing. Dictated by Singh Mena MD @ 02/13/2025 3:24:50 PM (Electronically Signed)
== END 2025-02-12 17:58 | disposition home or self-care (01) ==
LOC: MRI 17:57
PROVIDERS: PCP Family Medicine; Visit Provider Orthopaedic Surgery Orthopaedic Surgery of the Spine
DX: M48.062 Spinal stenosis, lumbar region with neurogenic claudication (principal); M48.061 Spinal stenosis, lumbar region without neurogenic claudication; M51.26 Other intervertebral disc displacement, lumbar region; M51.27 Other intervertebral disc displacement, lumbosacral region
CPT/HCPCS: 72148

== ENCOUNTER 2025-03-06 10:10 | Outpatient (CLI) | payer BC, SELFPAY | END 2025-03-06 10:11 | disposition home or self-care (01) | PROVIDERS: PCP Family Medicine; Visit Provider Family Medicine | DX: Z01.818 Encounter for other preprocedural examination (principal); E78.5 Hyperlipidemia, unspecified | CPT/HCPCS: 80048; 80061 ==